=== PATIENT | male | born 1985 | race African-American/Black ===

== ENCOUNTER 2016-07-12 13:47 | Emergency (ER) | payer BC ==
[~2016-07-12] VITALS: Ht 170.2 cm; Wt 74.8 kg
[2016-07-12] MEDS ORDERED: KETOROLAC 30 MG/ML VIAL IM ONE (13:55)
[2016-07-12 13:56] VITALS: BP 121/80
--- NOTE | 2016-07-12 14:11 | NUR ---
Patient ambulated to bed 4. RN evaluating patient at bedside.
--- NOTE | 2016-07-12 14:15 | NUR ---
ARAVINDO PT TAKEN TO CT VIA WHEEL CHAIR BY TECH
--- NOTE | 2016-07-12 14:20 | NUR ---
PT PRESENTS TO ER W/C/O RIGHT FLANK PAIN X3 DAYS. HX KIDNEY STONES; DENIES N/V/D; SKIN IS PINK/WARM/DRY; AAOX4 WITH EVEN AND STEADY GAIT; LUNGS CLEAR BL; HR EVEN AND REGULAR; PT DENIES ANY FEVER, CP, SOB, OR COUGH AT THIS TIME; PATIENT STATES PAIN OF 7/10 AT THIS TIME; VSS; PATIENT POSITIONED FOR COMFORT; HOB ELEVATED; BEDRAILS UP X2; BED DOWN. ER MD MADE AWARE OF PT STATUS.
[2016-07-12] MEDS ORDERED: MORPHINE SULFATE 5 MG/ML VIAL IM ONE (15:15)
[2016-07-12] MEDS ORDERED: MORPHINE SULFATE 10 MG/ML SYR ONE (15:31)
[2016-07-12 15:57] VITALS: BP 127/79
--- NOTE | 2016-07-12 15:57 | NUR ---
Patient discharged with v/s stable. Written and verbal after care instructions given and explained. Patient alert, oriented and verbalized understanding of instructions. Ambulatory with steady gait. All questions addressed prior to discharge. ID band removed. Patient advised to follow up with PMD. Rx of PERCOCET given. Patient educated on indication of medication including possible reaction and side effects. Opportunity to ask questions provided and answered.
== END 2016-07-12 15:57 | disposition home or self-care (01) ==
LOC: MED 13:47
DX: N20.0 Calculus of kidney (principal)
CPT/HCPCS: 74176; 81001; 96372; 99285; J1885; J2270

== ENCOUNTER 2016-07-20 18:50 | Emergency (ER) | payer BC ==
[~2016-07-20] VITALS: Ht 170.2 cm; Wt 72.6 kg
[2016-07-20 18:55] VITALS: BP 138/75
[2016-07-20] MEDS ORDERED: BUPIVACAINE-MPF 0.5% 10 ML VIAL INJ ONE (19:10)
--- NOTE | 2016-07-20 19:19 | NUR ---
PT MOVED TO OF
[2016-07-20 20:00] VITALS: BP 127/71
--- NOTE | 2016-07-20 20:00 | NUR ---
Patient discharged with v/s stable. Written and verbal after care instructions given and explained. Patient alert, oriented and verbalized understanding of instructions. Ambulatory with steady gait. All questions addressed prior to discharge. ID band removed. Patient advised to follow up with PMD. Rx of [place] and Naproxen given. Patient educated on indication of medication including possible reaction and side effects. Opportunity to ask questions provided and answered.
== END 2016-07-20 20:00 | disposition home or self-care (01) ==
LOC: MED 18:50
DX: M25.512 Pain in left shoulder (principal)
CPT/HCPCS: 73030; 99284

== ENCOUNTER 2016-08-15 09:48 | Emergency (ER) | payer BC ==
[~2016-08-15] VITALS: Ht 170.2 cm; Wt 74.8 kg
[2016-08-15 09:57] VITALS: BP 125/58
--- NOTE | 2016-08-15 10:07 | NUR ---
Patient being evaluated by Dr. Erwin in overflow.
[2016-08-15 10:57] VITALS: BP 125/58
== END 2016-08-15 10:58 | disposition home or self-care (01) ==
LOC: MED 09:48
DX: J06.9 Acute upper respiratory infection, unspecified (principal)
CPT/HCPCS: 99283